=== PATIENT | female | born 1975 | race Caucasian/White ===

== ENCOUNTER 2017-10-29 11:56 | Emergency (ER) | payer OTHER ==
[~2017-10-29] VITALS: Ht 175.3 cm; Wt 88.9 kg
[~2017-10-29 11:56] MED LIST: AMBEREN; AZITHROMYCIN 2250 MG PO; LEXAPRO20 MG PO; LORTABELXR PO; NOHOMEMEDICATIONS; NORCO 5-325 TA1 EACH PO; PERCOCET 5-3251 EACH PO; ZOFRAN4 MG PO; ZPAK PO
[2017-10-29] MEDS ORDERED: IBUPROFEN 800800 M1 PO (12:09)
[2017-10-29] MEDS ORDERED: MEDROLDOSEPACK PO (12:23)
[2017-10-29] MEDS ORDERED: LEVAQUIN 500 M500 M2 PO (12:23)
[2017-10-29 12:37] VITALS: BP 138/75
== END 2017-10-29 12:39 | disposition home or self-care (01) ==
LOC: M.ERS 11:56
DX: J18.9 Pneumonia, unspecified organism (principal); Z90.89 Acquired absence of other organs; Z98.890 Other specified postprocedural states; Z88.5 Allergy status to narcotic agent; Z88.0 Allergy status to penicillin; Z88.2 Allergy status to sulfonamides

== ENCOUNTER 2018-08-07 07:36 | Emergency (ER) | payer OTHER ==
[~2018-08-07] VITALS: Ht 175.3 cm; Wt 99.8 kg
[~2018-08-07 07:36] MED LIST changes: +IBUPROFEN 800800 M1 PO; +LEVAQUIN 500 M500 M2 PO; +MEDROLDOSEPACK PO
[2018-08-07] MEDS ORDERED: HYDROCODONE-AP1 EAC6 PO (08:57)
[2018-08-07] MEDS ORDERED: PERCOCET PO (09:11)
[2018-08-07 09:23] VITALS: BP 112/82
== END 2018-08-07 09:30 | disposition home or self-care (01) ==
LOC: M.ERS 07:36
DX: S20.212A Contusion of left front wall of thorax, initial encounter (principal); Z88.5 Allergy status to narcotic agent; Z88.0 Allergy status to penicillin; Z88.2 Allergy status to sulfonamides; Z90.89 Acquired absence of other organs; Z98.890 Other specified postprocedural states; W18.39XA Other fall on same level, initial encounter; Y92.89 Other specified places as the place of occurrence of the external cause; Y93.89 Activity, other specified; Y99.8 Other external cause status